=== PATIENT | female | born 1935 | race Caucasian/White ===

== ENCOUNTER 2017-04-11 14:39 | Inpatient (IN) ==
[2017-04-11 17:13] LABS: Basophils % 0.3 % (0.0-0.8); Eosinophils % 0.4 % (0.00-10.9); Hematocrit 27.8 VOL% (35.7-47.0); Hemoglobin 8.6 GM/DL (12.0-16.0); Immature Granulocytes % 1.1 %; Immature Granulocytes Absolute 0.08 #; Lymphocytes # 2.2 10*3/uL (1.4-4.0); Lymphocytes % 30.1 % (21.3-54.2); Mean Corpuscular HGB Conc 30.9 GM/DL (32-36); Mean Corpuscular Hemoglobin 30 PG (27-34); Mean Corpuscular Volume 95.5 FL (87-102); Mean Platelet Volume 11.1 FL (9.6-12.0); Monocytes # 0.7 10*3/uL (0.11-0.8); Monocytes % 10.3 % (1.7-12.7); Neutrophils # 4.1 10*3/uL (1.4-7.4); Neutrophils % 57.8 % (38.7-73.9); Platelet Count 308 T/CUMM (130-400); Red Blood Count 2.91 MC/CUMM (3.8-5.5); Red Cell Distribution Width 15.7 % (9.3-17.3); White Blood Count 7.2 T/CUMM (4-12)
[2017-04-11 17:22] LABS: INR 1.1; PT Patient Result 11.1 SECS
[2017-04-11 18:22] LABS: Albumin 3.6 G/DL (3.4-5.0); Bilirubin,Total 0.5 MG/DL (0.2-1.0); Calcium 9.1 MG/DL (8.5-10.1); Osmolality,Calculated 287.1 MOS/KG (273-304); Potassium 4.7 MMOL/L (3.5-5.1); Total Protein 6.5 G/DL (6.4-8.3)
[2017-04-11] MEDS ORDERED: PANTOPRAZOLE INJ 80 MG in SODIUM CHLORIDE 0.9% 100 ML IV STA (19:44)
[2017-04-11] MEDS ORDERED: SODIUM CHLORIDE 0.9% 1,000 ML IV PRN (20:27)
[2017-04-11] MEDS ORDERED: ACETAMINOPHEN 325 MG TABLET PO PRN (20:27)
[2017-04-11] MEDS ORDERED: ONDANSETRON 4 MG/2 ML VIAL IV PRN (20:27)
[2017-04-11] MEDS ORDERED: PANTOPRAZOLE 40 MG VIAL IV ONE ×2 (20:35→20:38)
[2017-04-11] MEDS: PANTOPRAZOLE INJ 200 MG in SODIUM CHLORIDE 0.9% 250 ML IV SCH (21:13)
[2017-04-12 00:04] LABS: Hematocrit 24.4 VOL% (35.7-47.0); Hemoglobin 7.7 GM/DL (12.0-16.0)
[2017-04-12 06:47] LABS: Hematocrit 27.1 VOL% (35.7-47.0); Hemoglobin 8.6 GM/DL (12.0-16.0)
[2017-04-12 07:38] LABS: Calcium 9.2 MG/DL (8.5-10.1); Osmolality,Calculated 281.3 MOS/KG (273-304); Potassium 4.9 MMOL/L (3.5-5.1)
[2017-04-12 10:06] LABS: Hematocrit 28.6 VOL% (35.7-47.0); Hemoglobin 8.9 GM/DL (12.0-16.0)
[2017-04-12] MEDS ORDERED: ONDANSETRON ODT 4 MG TABLET PO PRN (15:42)
[2017-04-12 18:10] LABS: Hematocrit 35.4 VOL% (35.7-47.0); Hemoglobin 11.7 GM/DL (12.0-16.0)
[2017-04-12] MEDS: SERTRALINE 25 MG TABLET PO SCH (20:40)
[2017-04-12] MEDS: FENOFIBRATE 145 MG TABLET PO SCH (20:40)
[2017-04-12] MEDS: LISINOPRIL 20 MG TABLET PO SCH (20:40)
[2017-04-12] MEDS: EZETIMIBE 10 MG TABLET PO SCH (20:40)
[2017-04-12] MEDS: amLODIPine 2.5 MG TABLET PO SCH (20:41)
[2017-04-12] MEDS: PRAVASTATIN 40 MG TABLET PO SCH (20:41)
[2017-04-12] MEDS ORDERED: CARVEDILOL CR 40 MG CAPSULE PO SCH (21:00)
[2017-04-12] MEDS: PANTOPRAZOLE INJ 200 MG in SODIUM CHLORIDE 0.9% 250 ML IV SCH (22:47)
[2017-04-12] MEDS: ESTROGENS (CONJ) 0.3 MG TABLET PO SCH (22:47)
[2017-04-13 05:33] LABS: Hematocrit 31.8 VOL% (35.7-47.0); Hemoglobin 10.5 GM/DL (12.0-16.0)
[2017-04-13 06:07] LABS: Risk Ratio 3.94; VLDL CHOLESTEROL 46.2 MG/DL
[2017-04-13] MEDS: hydroCHLOROthiazide 12.5 MG CAPSULE PO SCH (08:32)
[2017-04-13] MEDS: LISINOPRIL 20 MG TABLET PO SCH ×2 (08:32→20:54)
[2017-04-13] MEDS: amLODIPine 2.5 MG TABLET PO SCH ×2 (08:32→20:54)
[2017-04-13] MEDS: PANTOPRAZOLE 40 MG TABLET PO SCH ×2 (08:33→10:10)
[2017-04-13] MEDS: SERTRALINE 25 MG TABLET PO SCH (20:53)
[2017-04-13] MEDS: ESTROGENS (CONJ) 0.3 MG TABLET PO SCH (20:54)
[2017-04-13] MEDS: FENOFIBRATE 145 MG TABLET PO SCH (20:54)
[2017-04-13] MEDS: EZETIMIBE 10 MG TABLET PO SCH (20:54)
[2017-04-13] MEDS: PRAVASTATIN 40 MG TABLET PO SCH (20:54)
[2017-04-13] MEDS ORDERED: CARVEDILOL PHOSPHATE 80 MG PO SCH (21:00)
[2017-04-14 05:28] LABS: Hematocrit 33.2 VOL% (35.7-47.0); Hemoglobin 11.1 GM/DL (12.0-16.0)
[2017-04-14] MEDS: amLODIPine 2.5 MG TABLET PO SCH (09:57)
[2017-04-14] MEDS: PANTOPRAZOLE 40 MG TABLET PO SCH (09:57)
[2017-04-14] MEDS: hydroCHLOROthiazide 12.5 MG CAPSULE PO SCH (09:57)
[2017-04-14] MEDS: LISINOPRIL 20 MG TABLET PO SCH (09:57)
[2017-04-14 11:56] VITALS: BP 160/71
== END 2017-04-14 15:34 | disposition home or self-care (01) | DRG 378 ==
LOC: N.ED 14:39 → N.EDINP 20:27 → N.5E 20:59
PROVIDERS: ADMIT Internal Medicine; ATTEND Internal Medicine

== ENCOUNTER 2018-03-09 02:53 | Inpatient (IN) ==
[2018-03-09] MEDS ORDERED: SODIUM CHLORIDE 0.9% 500 ML IV STA (03:03)
[2018-03-09] MEDS ORDERED: DILTIAZEM 50 MG/10 ML VIAL IV STA ×2 (03:03→03:58)
[2018-03-09] MEDS ORDERED: ASPIRIN 325 MG TABLET PO STA (03:03)
[2018-03-09] MEDS ORDERED: DILTIAZEM 25 MG/5 ML VIAL IV ONE (03:09)
[2018-03-09 04:01] LABS: Basophils % 0.7 % (0.0-0.8); Eosinophils # 0.1 10*3/uL (0.0-0.87); Eosinophils % 1.1 % (0.00-10.9); Hematocrit 38.1 VOL% (35.7-47.0); Hemoglobin 12.4 GM/DL (12.0-16.0); Immature Granulocytes % 0.7 %; Immature Granulocytes Absolute 0.04 #; Lymphocytes % 36.5 % (21.3-54.2); Mean Corpuscular HGB Conc 32.5 GM/DL (32-36); Mean Corpuscular Hemoglobin 31 PG (27-34); Mean Platelet Volume 10.9 FL (9.6-12.0); Monocytes % 17.7 % (1.7-12.7); Neutrophils # 2.3 10*3/uL (1.4-7.4); Neutrophils % 43.3 % (38.7-73.9); Platelet Count 260 T/CUMM (130-400); Red Blood Count 3.97 MC/CUMM (3.8-5.5); Red Cell Distribution Width 13.6 % (9.3-17.3); White Blood Count 5.4 T/CUMM (4-12)
[2018-03-09 04:16] LABS: Alanine Aminotransferase 20 U/L (13-56); Albumin 3.5 G/DL (3.4-5.0); Alkaline Phosphatase 66 U/L (45-117); Aspartate Amino Transferase 23 U/L (0-37); Bilirubin,Total < 0.39 MG/DL (0.2-1.0); Blood Urea Nitrogen 25 MG/DL (7-18); Calcium 8.7 MG/DL (8.5-10.1); Glucose 196 MG/DL (74-106); Osmolality,Calculated 281.8 MOS/KG (273-304); Potassium 3.3 MMOL/L (3.5-5.1); Sodium 137 MMOL/L (136-145); Total Protein 7.2 G/DL (6.4-8.3)
[2018-03-09] MEDS ORDERED: ENOXAPARIN 80 MG/0.8 ML SYRINGE SUBCUT STA (04:27)
[2018-03-09] MEDS ORDERED: METOPROLOL TARTRATE 5 MG/5 ML VIAL IV STA (05:07)
[2018-03-09] MEDS ORDERED: MORPHINE 4 MG/1 ML VIAL IV PRN (05:35)
[2018-03-09] MEDS ORDERED: ACETAMINOPHEN 325 MG TABLET PO PRN (05:35)
[2018-03-09] MEDS ORDERED: diphenhydrAMINE CAP 25 MG CAPSULE PO PRN (05:35)
[2018-03-09] MEDS ORDERED: MAGNESIUM SULF RIDER 2 GM in PREMIX 1 EACH IV PRN (05:35)
[2018-03-09] MEDS ORDERED: MAGNESIUM SULF RIDER 4 GM in PREMIX 1 EACH IV PRN (05:35)
[2018-03-09] MEDS ORDERED: POTASSIUM CHLORIDE 20 MEQ TABLET PO PRN (05:35)
[2018-03-09] MEDS ORDERED: BISACODYL 5 MG TABLET PO PRN (05:35)
[2018-03-09] MEDS ORDERED: ONDANSETRON 4 MG/2 ML VIAL IV PRN (05:35)
[2018-03-09] MEDS ORDERED: ZALEPLON 5 MG CAPSULE PO PRN (05:35)
[2018-03-09] MEDS ORDERED: NICOTINE 21 MG/24 HR PATCH TRANSDERM PRN (05:35)
[2018-03-09] MEDS ORDERED: dilTIAZem Drip 125 MG/125 ML PREMIX IV SCH (06:00)
[2018-03-09] MEDS ORDERED: hydrALAZINE 25 MG TABLET PO PRN (06:00)
[2018-03-09 06:06] LABS: Risk Ratio 4.9; VLDL CHOLESTEROL 88.2 MG/DL
[2018-03-09] MEDS ORDERED: AMIODARONE INJ 150 MG in DEXTROSE 5% 100 ML IV ONE (07:17)
[2018-03-09] MEDS ORDERED: AMIODARONE INJ 450 MG in DEXTROSE 5% 241 ML IV SCH (07:30)
[2018-03-09] MEDS ORDERED: ENOXAPARIN 40 MG/0.4 ML SYRINGE SUBCUT SCH (09:00)
[2018-03-09] MEDS ORDERED: CLOPIDOGREL 75 MG TABLET PO SCH ×2 (09:00→21:00)
[2018-03-09] MEDS ORDERED: FENOFIBRATE 145 MG TABLET PO SCH ×2 (09:00→21:00)
[2018-03-09] MEDS ORDERED: NON-FORMULARY MEDICATION (Omeprazole [Prilosec] 20 MG) PO SCH (09:00)
[2018-03-09] MEDS: SERTRALINE 50 MG TABLET PO SCH (10:28)
[2018-03-09] MEDS: PANTOPRAZOLE 40 MG TABLET PO SCH (10:29)
[2018-03-09] MEDS: AMIODARONE 200 MG TABLET PO SCH ×2 (10:29→21:20)
[2018-03-09] MEDS: CARVEDILOL 25 MG TABLET PO SCH ×2 (10:29→21:20)
[2018-03-09] MEDS: amLODIPine 5 MG TABLET PO SCH ×2 (10:29→21:20)
[2018-03-09] MEDS ORDERED: EZETIMIBE 10 MG TABLET PO SCH (21:00)
[2018-03-09] MEDS ORDERED: ASPIRIN EC 81 MG TABLET PO SCH (21:00)
[2018-03-09] MEDS ORDERED: SIMVASTATIN 40 MG TABLET PO SCH (21:00)
[2018-03-09] MEDS ORDERED: CARVEDILOL PHOSPHATE 80 MG PO SCH (21:00)
[2018-03-10 04:41] LABS: Basophils % 0.5 % (0.0-0.8); Eosinophils # 0.1 10*3/uL (0.0-0.87); Eosinophils % 1.1 % (0.00-10.9); Hematocrit 36.5 VOL% (35.7-47.0); Hemoglobin 11.5 GM/DL (12.0-16.0); Immature Granulocytes % 0.5 %; Immature Granulocytes Absolute 0.03 #; Lymphocytes # 2.1 10*3/uL (1.4-4.0); Lymphocytes % 37.9 % (21.3-54.2); Mean Corpuscular HGB Conc 31.5 GM/DL (32-36); Mean Corpuscular Hemoglobin 31 PG (27-34); Mean Corpuscular Volume 97.9 FL (87-102); Mean Platelet Volume 11.2 FL (9.6-12.0); Monocytes # 0.6 10*3/uL (0.11-0.8); Monocytes % 11.5 % (1.7-12.7); Neutrophils # 2.7 10*3/uL (1.4-7.4); Neutrophils % 48.5 % (38.7-73.9); Platelet Count 233 T/CUMM (130-400); Red Blood Count 3.73 MC/CUMM (3.8-5.5); Red Cell Distribution Width 13.7 % (9.3-17.3); White Blood Count 5.5 T/CUMM (4-12)
[2018-03-10 04:53] LABS: Alanine Aminotransferase 17 U/L (13-56); Albumin 3.2 G/DL (3.4-5.0); Alkaline Phosphatase 34 U/L (45-117); Aspartate Amino Transferase 18 U/L (0-37); Bilirubin,Total < 0.39 MG/DL (0.2-1.0); Blood Urea Nitrogen 26 MG/DL (7-18); Calcium 8.2 MG/DL (8.5-10.1); Glucose 120 MG/DL (74-106); Osmolality,Calculated 280.7 MOS/KG (273-304); Potassium 4.1 MMOL/L (3.5-5.1); Sodium 138 MMOL/L (136-145); Total Protein 6.4 G/DL (6.4-8.3)
[2018-03-10 08:20] VITALS: BP 167/86
[2018-03-10] MEDS ORDERED: ENOXAPARIN 40 MG/0.4 ML SYRINGE SUBCUT SCH (09:00)
[2018-03-10] MEDS ORDERED: AMIODARONE 200 MG TABLET PO SCH (09:00)
[2018-03-10] MEDS: CARVEDILOL 25 MG TABLET PO SCH (09:03)
[2018-03-10] MEDS: SERTRALINE 50 MG TABLET PO SCH (09:03)
[2018-03-10] MEDS: amLODIPine 5 MG TABLET PO SCH (09:03)
[2018-03-10] MEDS: PANTOPRAZOLE 40 MG TABLET PO SCH (09:03)
== END 2018-03-10 12:25 | disposition home or self-care (01) | DRG 309 ==
LOC: EDUNIT# → N.ED 02:53 → N.EDINP 05:35 → SUATTDRO 05:35 → N.EDINP 09:30 → N.2W 09:33 → N.TELES 13:10
PROVIDERS: ADMIT Internal Medicine; ATTEND Internal Medicine Cardiovascular Disease

== ENCOUNTER 2020-07-21 10:09 | Inpatient (IN) ==
[2020-07-21 10:50] LABS: Albumin 3.1 G/DL (3.4-5.0); Bilirubin,Total 0.4 MG/DL (0.2-1.0); Calcium 8.9 MG/DL (8.5-10.1); Osmolality,Calculated 280.5 MOS/KG (273-304); Potassium 4.1 MMOL/L (3.5-5.1); Total Protein 6.9 G/DL (6.4-8.2)
[2020-07-21 10:53] LABS: Basophils # 0.1 10*3/uL (0.0-0.2); Basophils % 0.4 % (0.0-0.8); Eosinophils % 0.3 % (0.00-10.9); Hematocrit 24.7 VOL% (35.7-47.0); Hemoglobin 6.9 GM/DL (12.0-16.0); Immature Granulocytes % 8.2 %; Immature Granulocytes Absolute 0.94 #; Lymphocytes # 1.9 10*3/uL (1.4-4.0); Lymphocytes % 16.7 % (21.3-54.2); Mean Corpuscular HGB Conc 27.9 GM/DL (32-36); Mean Corpuscular Volume 71.6 FL (87-102); Monocytes % 8.1 % (1.7-12.7); NRBC # 0.13 10*3/uL; Neutrophils % 66.3 % (38.7-73.9); Platelet Count 270 T/CUMM (130-400); Red Blood Count 3.45 MC/CUMM (3.8-5.5); White Blood Count 11.5 T/CUMM (4-12)
[2020-07-21 11:30] LABS: Atypical Lymphocytes Few; Band Neutrophils 2 % (0-10); Hypochromasia 1+; Lymphocytes 25 % (20-55); Microcytosis 1+; Nucleated Red Blood Cells 1 (0-5); Polychromasia Few; Segmented Neutrophils 67 % (50-85); Total Cells Counted 100
[2020-07-21 11:31] LABS: Platelet Estimate Normal
[2020-07-21] MEDS ORDERED: DEXTROSE 50% 25 GM/50 ML VIAL IV PRN (13:26)
[2020-07-21] MEDS ORDERED: GLUCAGON 1 MG VIAL IM PRN (13:26)
[2020-07-21] MEDS ORDERED: MORPHINE 4 MG/1 ML VIAL IV PRN (13:26)
[2020-07-21] MEDS ORDERED: ONDANSETRON 4 MG/2 ML VIAL IV PRN (13:26)
[2020-07-21] MEDS ORDERED: SODIUM CHLORIDE 0.9% 1,000 ML IV PRN (13:33)
[2020-07-21] MEDS ORDERED: FUROSEMIDE 40 MG/4 ML VIAL IV ONE ×2 (13:35→21:30)
[2020-07-21] MEDS: hydrALAZINE 20 MG/1 ML VIAL IV PRN ×2 (14:53→20:07)
[2020-07-21] MEDS: PANTOPRAZOLE 40 MG VIAL IV SCH ×2 (15:54→21:20)
[2020-07-21] MEDS: MEROPENEM 500 MG in SODIUM CHLORIDE 0.9% 100 ML IV SCH (17:41)
[2020-07-21] MEDS: lisinopriL 20 MG TABLET PO SCH (21:10)
[2020-07-21] MEDS: FERROUS SULFATE 325 MG TABLET PO SCH (21:10)
[2020-07-21] MEDS: amLODIPine 5 MG TABLET PO SCH (21:10)
[2020-07-21] MEDS: EZETIMIBE 10 MG TABLET PO SCH (21:10)
[2020-07-21] MEDS: PRAVASTATIN 80 MG TABLET PO SCH (21:45)
[2020-07-22] MEDS: MEROPENEM 500 MG in SODIUM CHLORIDE 0.9% 100 ML IV SCH ×4 (05:00→23:30)
[2020-07-22 05:19] LABS: Calcium 9.2 MG/DL (8.5-10.1); Osmolality,Calculated 277.5 MOS/KG (273-304); Potassium 3.8 MMOL/L (3.5-5.1); Risk Ratio 4.58; VLDL CHOLESTEROL 38.2 MG/DL
[2020-07-22] MEDS: LEVOTHYROXINE 50 MCG TABLET PO SCH (06:04)
[2020-07-22 08:33] LABS: Basophils # 0.1 10*3/uL (0.0-0.2); Basophils % 1.1 % (0.0-0.8); Eosinophils # 0.1 10*3/uL (0.0-0.87); Eosinophils % 1.1 % (0.00-10.9); Hematocrit 32.2 VOL% (35.7-47.0); Immature Granulocytes % 7.5 %; Lymphocytes # 1.5 10*3/uL (1.4-4.0); Lymphocytes % 15.7 % (21.3-54.2); Mean Corpuscular HGB Conc 29.5 GM/DL (32-36); Mean Corpuscular Volume 74.4 FL (87-102); Mean Platelet Volume 10.9 FL (9.6-12.0); Monocytes % 8.8 % (1.7-12.7); NRBC # 0.09 10*3/uL; Neutrophils % 65.8 % (38.7-73.9); Platelet Count 213 T/CUMM (130-400); White Blood Count 9.4 T/CUMM (4-12)
[2020-07-22 08:35] LABS: Hemoglobin 9.5 GM/DL (12.0-16.0); Red Blood Count 4.33 MC/CUMM (3.8-5.5)
[2020-07-22 08:57] LABS: Band Neutrophils 2 % (0-10); Hypochromasia 1+; Lymphocytes 19 % (20-55); Microcytosis 1+; Myelocytes 1 %; Nucleated Red Blood Cells 1 (0-5); Platelet Estimate Normal; Polychromasia Slight; Segmented Neutrophils 77 % (50-85); Total Cells Counted 100
[2020-07-22] MEDS: lisinopriL 20 MG TABLET PO SCH ×2 (09:02→21:13)
[2020-07-22] MEDS: FERROUS SULFATE 325 MG TABLET PO SCH ×2 (09:02→21:15)
[2020-07-22] MEDS: hydroCHLOROthiazide 25 MG TABLET PO SCH (09:02)
[2020-07-22] MEDS: PANTOPRAZOLE 40 MG VIAL IV SCH ×2 (09:02→21:13)
[2020-07-22] MEDS: FUROSEMIDE 40 MG/4 ML VIAL IV SCH (09:02)
[2020-07-22] MEDS: amLODIPine 5 MG TABLET PO SCH ×2 (09:03→21:14)
[2020-07-22] MEDS: AMIODARONE 200 MG TABLET PO SCH (09:03)
[2020-07-22] MEDS: SERTRALINE 50 MG TABLET PO SCH (09:03)
[2020-07-22] MEDS ORDERED: NITROGLYCERIN SL 0.4 MG TABLET SL PRN (09:50)
[2020-07-22] MEDS: EZETIMIBE 10 MG TABLET PO SCH (21:14)
[2020-07-22] MEDS: FENOFIBRATE 145 MG TABLET PO SCH (21:14)
[2020-07-22] MEDS: PRAVASTATIN 80 MG TABLET PO SCH (21:15)
[2020-07-23] MEDS: MEROPENEM 500 MG in SODIUM CHLORIDE 0.9% 100 ML IV SCH ×3 (05:24→21:51)
[2020-07-23] MEDS: LEVOTHYROXINE 50 MCG TABLET PO SCH (06:34)
[2020-07-23] MEDS ORDERED: LACTATED RINGERS 1,000 ML IV SCH (07:00)
[2020-07-23] MEDS: lisinopriL 20 MG TABLET PO SCH ×2 (09:58→21:51)
[2020-07-23] MEDS ORDERED: propofoL 200 MG/20 ML VIAL IV ONE (13:11)
[2020-07-23] MEDS ORDERED: LIDOCAINE 2% 5 ML VIAL ONE (13:11)
[2020-07-23] MEDS: NORTRIPTYLINE 25 MG CAPSULE PO SCH (15:22)
[2020-07-23] MEDS: FERROUS SULFATE 325 MG TABLET PO SCH ×2 (15:22→21:51)
[2020-07-23] MEDS: SERTRALINE 50 MG TABLET PO SCH (15:22)
[2020-07-23] MEDS: amLODIPine 5 MG TABLET PO SCH ×2 (15:22→21:51)
[2020-07-23] MEDS: AMIODARONE 200 MG TABLET PO SCH (15:23)
[2020-07-23] MEDS: FUROSEMIDE 40 MG/4 ML VIAL IV SCH (15:23)
[2020-07-23] MEDS: hydroCHLOROthiazide 25 MG TABLET PO SCH (15:23)
[2020-07-23] MEDS: PANTOPRAZOLE 40 MG VIAL IV SCH ×2 (15:24→21:51)
[2020-07-23] MEDS: ESTROGENS (CONJ) 0.3 MG TABLET PO SCH (15:24)
[2020-07-23] MEDS: FENOFIBRATE 145 MG TABLET PO SCH (21:51)
[2020-07-23] MEDS: EZETIMIBE 10 MG TABLET PO SCH (21:51)
[2020-07-23] MEDS: PRAVASTATIN 80 MG TABLET PO SCH (21:51)
[2020-07-23] MEDS ORDERED: diphenhydrAMINE CAP 25 MG CAPSULE ONE (22:51)
[2020-07-24] MEDS: MEROPENEM 500 MG in SODIUM CHLORIDE 0.9% 100 ML IV SCH ×3 (03:30→15:35)
[2020-07-24 05:50] LABS: Calcium 9.1 MG/DL (8.5-10.1); Osmolality,Calculated 274.8 MOS/KG (273-304); Potassium 3.2 MMOL/L (3.5-5.1)
[2020-07-24 06:00] LABS: Basophils # 0.1 10*3/uL (0.0-0.2); Basophils % 0.7 % (0.0-0.8); Eosinophils % 0.3 % (0.00-10.9); Hematocrit 33.4 VOL% (35.7-47.0); Immature Granulocytes Absolute 0.46 #; Lymphocytes # 2.5 10*3/uL (1.4-4.0); Lymphocytes % 27.4 % (21.3-54.2); Mean Corpuscular HGB Conc 29.9 GM/DL (32-36); Mean Corpuscular Volume 72.6 FL (87-102); Monocytes % 10.6 % (1.7-12.7); NRBC # 0.02 10*3/uL; Platelet Count 220 T/CUMM (130-400); Red Cell Distribution Width 20.7 % (9.3-17.3); White Blood Count 9.1 T/CUMM (4-12)
[2020-07-24] MEDS: LEVOTHYROXINE 50 MCG TABLET PO SCH (06:23)
[2020-07-24] MEDS: POTASSIUM CHLORIDE 20 MEQ TABLET PO PRN ×3 (06:54→15:34)
[2020-07-24] MEDS: hydroCHLOROthiazide 25 MG TABLET PO SCH (08:38)
[2020-07-24] MEDS: AMIODARONE 200 MG TABLET PO SCH (08:38)
[2020-07-24] MEDS: lisinopriL 20 MG TABLET PO SCH (08:38)
[2020-07-24] MEDS: FERROUS SULFATE 325 MG TABLET PO SCH (08:38)
[2020-07-24] MEDS: SERTRALINE 50 MG TABLET PO SCH (08:38)
[2020-07-24] MEDS: NORTRIPTYLINE 25 MG CAPSULE PO SCH (08:38)
[2020-07-24] MEDS: amLODIPine 5 MG TABLET PO SCH (08:38)
[2020-07-24] MEDS: PANTOPRAZOLE 40 MG VIAL IV SCH (08:41)
[2020-07-24] MEDS: FUROSEMIDE 40 MG/4 ML VIAL IV SCH (08:45)
[2020-07-24] MEDS ORDERED: ASPIRIN EC 81 MG TABLET PO SCH (09:00)
[2020-07-24] MEDS: ESTROGENS (CONJ) 0.3 MG TABLET PO SCH (10:29)
[2020-07-24 16:40] VITALS: BP 161/47
[2020-07-24] MEDS ORDERED: DOCUSATE SODIUM 100 MG CAPSULE PO SCH (21:00)
[2020-07-24] MEDS ORDERED: POLYETHYLENE GLYCOL POWDER 17 GM PACK PO SCH (21:00)
[2020-07-24] MEDS ORDERED: DOXAZOSIN 1 MG TABLET PO SCH (21:00)
[2020-07-29] MEDS ORDERED: cloNIDine 0.3 MG/24 HR PATCH TRANSDERM SCH (09:00)
== END 2020-07-24 17:35 | disposition home or self-care (01) | DRG 813 ==
LOC: EDBD → EDUNIT# → N.ED 10:09 → N.EDINP 13:48 → N.4E 14:20
PROVIDERS: ADMIT Hospitalist; ATTEND Hospitalist

== ENCOUNTER 2021-01-17 15:30 | Inpatient (IN) ==
[2021-01-17] MEDS ORDERED: SODIUM CHLORIDE 0.9% 1,000 ML IV PRN (16:29)
[2021-01-17 16:42] LABS: Basophils % 0.4 % (0.0-0.8); Eosinophils # 0.1 10*3/uL (0.0-0.87); Eosinophils % 1.3 % (0.00-10.9); Immature Granulocytes % 1.8 %; Immature Granulocytes Absolute 0.08 #; Lymphocytes # 1.4 10*3/uL (1.4-4.0); Lymphocytes % 31.7 % (21.3-54.2); Mean Corpuscular HGB Conc 27.6 GM/DL (32-36); Mean Corpuscular Volume 73.7 FL (87-102); Monocytes % 10.8 % (1.7-12.7); Platelet Count 177 T/CUMM (130-400); Red Blood Count 2.85 MC/CUMM (3.8-5.5); Red Cell Distribution Width 20.6 % (9.3-17.3); White Blood Count 4.5 T/CUMM (4-12)
[2021-01-17 16:48] LABS: Albumin 3.4 G/DL (3.4-5.0); Bilirubin,Total 0.5 MG/DL (0.20-1.00); Calcium 9.2 MG/DL (8.5-10.1); Total Protein 7.2 G/DL (6.4-8.2)
[2021-01-17 16:51] LABS: Hemoglobin 5.8 GM/DL (12.0-16.0)
[2021-01-17] MEDS ORDERED: GLUCAGON 1 MG VIAL IM PRN (17:44)
[2021-01-17] MEDS ORDERED: DEXTROSE 50% 25 GM/50 ML SYRINGE IV PRN (17:44)
[2021-01-17] MEDS ORDERED: ONDANSETRON 4 MG/2 ML VIAL IV PRN (17:44)
[2021-01-17] MEDS ORDERED: PRAVASTATIN 40 MG TABLET PO SCH (21:00)
[2021-01-17] MEDS: LOSARTAN 50 MG TABLET PO SCH (22:20)
[2021-01-17] MEDS: EZETIMIBE 10 MG TABLET PO SCH (22:20)
[2021-01-17] MEDS: FENOFIBRATE 145 MG TABLET PO SCH (22:20)
[2021-01-17] MEDS: PANTOPRAZOLE 40 MG VIAL IV SCH (22:20)
[2021-01-17] MEDS: AMIODARONE 200 MG TABLET PO SCH (22:20)
[2021-01-17] MEDS: NORTRIPTYLINE 25 MG CAPSULE PO SCH (22:45)
[2021-01-17] MEDS: PRAVASTATIN 40MG TAB PO SCH (23:49)
[2021-01-18] MEDS ORDERED: INFLUENZA VIRUS VACCINE 0.5 ML SYRINGE IM ONE (00:37)
[2021-01-18] MEDS: LEVOTHYROXINE 50 MCG TABLET PO SCH (05:52)
[2021-01-18 07:17] LABS: Basophils % 0.7 % (0.0-0.8); Eosinophils % 0.7 % (0.00-10.9); Hemoglobin 8.1 GM/DL (12.0-16.0); Immature Granulocytes % 1.3 %; Immature Granulocytes Absolute 0.06 #; Lymphocytes # 1.5 10*3/uL (1.4-4.0); Mean Corpuscular HGB Conc 28.9 GM/DL (32-36); Mean Corpuscular Volume 77.1 FL (87-102); Mean Platelet Volume 10.5 FL (9.6-12.0); Monocytes % 10.1 % (1.7-12.7); Neutrophils % 54.2 % (38.7-73.9); Platelet Count 137 T/CUMM (130-400); Red Blood Count 3.63 MC/CUMM (3.8-5.5); Red Cell Distribution Width 21.3 % (9.3-17.3); White Blood Count 4.5 T/CUMM (4-12)
[2021-01-18 07:45] LABS: Calcium 9.2 MG/DL (8.5-10.1); Osmolality,Calculated 278.8 MOS/KG (273-304); Potassium 3.7 MMOL/L (3.5-5.1); Thyroid Stimulating Hormone 5.51 uIU/ml (0.358-3.74)
[2021-01-18 07:50] LABS: Anisocytosis 2+; Platelet Estimate Adequate; Polychromasia Slight; Target Cells Few
[2021-01-18] MEDS: hydrALAZINE 20 MG/1 ML VIAL IV PRN (11:25)
[2021-01-18] MEDS: PANTOPRAZOLE 40 MG VIAL IV SCH ×2 (11:25→21:39)
[2021-01-18] MEDS ORDERED: cloNIDine 0.3 MG/24 HR PATCH TRANSDERM SCH (14:30)
[2021-01-18] MEDS: LOSARTAN 50 MG TABLET PO SCH (21:38)
[2021-01-18] MEDS: FENOFIBRATE 145 MG TABLET PO SCH (21:38)
[2021-01-18] MEDS: NORTRIPTYLINE 25 MG CAPSULE PO SCH (21:38)
[2021-01-18] MEDS: EZETIMIBE 10 MG TABLET PO SCH (21:38)
[2021-01-18] MEDS: AMIODARONE 200 MG TABLET PO SCH (21:38)
[2021-01-18] MEDS: PRAVASTATIN 40MG TAB PO SCH (21:39)
[2021-01-18] MEDS ORDERED: ACETAMINOPHEN 325 MG TABLET PO ONE (22:43)
[2021-01-19 05:13] LABS: Basophils # 0.1 10*3/uL (0.0-0.2); Eosinophils # 0.1 10*3/uL (0.0-0.87); Hematocrit 28.3 VOL% (35.7-47.0); Hemoglobin 8.4 GM/DL (12.0-16.0); Immature Granulocytes % 1.8 %; Immature Granulocytes Absolute 0.09 #; Lymphocytes # 1.3 10*3/uL (1.4-4.0); Lymphocytes % 25.2 % (21.3-54.2); Mean Corpuscular HGB Conc 29.7 GM/DL (32-36); Mean Corpuscular Volume 78.6 FL (87-102); Mean Platelet Volume 10.9 FL (9.6-12.0); Monocytes % 11.6 % (1.7-12.7); Neutrophils % 59.4 % (38.7-73.9); Platelet Count 116 T/CUMM (130-400); Red Cell Distribution Width 21.2 % (9.3-17.3); White Blood Count 5.1 T/CUMM (4-12)
[2021-01-19 05:50] LABS: Anisocytosis 1+; Hypochromasia Slight
[2021-01-19] MEDS: LEVOTHYROXINE 50 MCG TABLET PO SCH (06:38)
[2021-01-19] MEDS: PANTOPRAZOLE 40 MG VIAL IV SCH ×2 (08:59→21:27)
[2021-01-19] MEDS: hydroCHLOROthiazide 25 MG TABLET PO SCH (09:04)
[2021-01-19 09:07] LABS: Calcium 9.2 MG/DL (8.5-10.1); Osmolality,Calculated 284.4 MOS/KG (273-304); Potassium 3.7 MMOL/L (3.5-5.1)
[2021-01-19] MEDS: EZETIMIBE 10 MG TABLET PO SCH (21:27)
[2021-01-19] MEDS: NORTRIPTYLINE 25 MG CAPSULE PO SCH (21:27)
[2021-01-19] MEDS: AMIODARONE 200 MG TABLET PO SCH (21:27)
[2021-01-19] MEDS: PRAZOSIN 1 MG CAPSULE PO SCH (21:27)
[2021-01-19] MEDS: FENOFIBRATE 145 MG TABLET PO SCH (21:27)
[2021-01-19] MEDS: LOSARTAN 50 MG TABLET PO SCH (21:28)
[2021-01-19] MEDS: PRAVASTATIN 40MG TAB PO SCH (21:28)
[2021-01-20 05:27] LABS: Basophils % 0.7 % (0.0-0.8); Eosinophils % 0.5 % (0.00-10.9); Hematocrit 27.4 VOL% (35.7-47.0); Immature Granulocytes % 1.5 %; Immature Granulocytes Absolute 0.06 #; Lymphocytes # 1.3 10*3/uL (1.4-4.0); Lymphocytes % 31.8 % (21.3-54.2); Mean Corpuscular HGB Conc 28.1 GM/DL (32-36); Mean Corpuscular Volume 79.2 FL (87-102); Monocytes % 10.7 % (1.7-12.7); Neutrophils % 54.8 % (38.7-73.9); Platelet Count 106 T/CUMM (130-400); Red Blood Count 3.46 MC/CUMM (3.8-5.5); Red Cell Distribution Width 21.3 % (9.3-17.3)
[2021-01-20 05:32] LABS: Hemoglobin 7.7 GM/DL (12.0-16.0)
[2021-01-20 05:43] LABS: Calcium 8.7 MG/DL (8.5-10.1); Osmolality,Calculated 282.3 MOS/KG (273-304)
[2021-01-20 05:46] LABS: Hypochromasia 1+; Microcytosis 1+; Platelet Estimate Decreased; Polychromasia Slight
[2021-01-20] MEDS ORDERED: POTASSIUM CHLORIDE RIDER 10 MEQ/100 ML PREMIX IV PRN ×2 (05:48→08:25)
[2021-01-20] MEDS: LEVOTHYROXINE 50 MCG TABLET PO SCH (06:20)
[2021-01-20] MEDS ORDERED: LACTATED RINGERS 1,000 ML IV SCH (07:00)
[2021-01-20] MEDS ORDERED: SODIUM CHLORIDE 0.9% 1,000 ML IV PRN (08:51)
[2021-01-20] MEDS ORDERED: POTASSIUM CHLORIDE 20 MEQ TABLET PO ONE (08:52)
[2021-01-20] MEDS: POTASSIUM CHLORIDE RIDER 10 MEQ/100 ML PREMIX IV PRN ×2 (08:54→11:12)
[2021-01-20] MEDS: hydroCHLOROthiazide 25 MG TABLET PO SCH (08:54)
[2021-01-20] MEDS: PRAZOSIN 1 MG CAPSULE PO SCH ×2 (08:54→20:24)
[2021-01-20] MEDS: PANTOPRAZOLE 40 MG VIAL IV SCH (08:55)
[2021-01-20] MEDS ORDERED: LIDOCAINE 2% 5 ML VIAL ONE (14:43)
[2021-01-20] MEDS ORDERED: propofoL 200 MG/20 ML VIAL IV ONE (14:43)
[2021-01-20] MEDS: hydrALAZINE 20 MG/1 ML VIAL IV PRN (16:39)
[2021-01-20] MEDS ORDERED: MAGNESIUM HYDROXIDE SUSP 30 ML UDCUP PO PRN (17:06)
[2021-01-20] MEDS: FENOFIBRATE 145 MG TABLET PO SCH (20:24)
[2021-01-20] MEDS: AMIODARONE 200 MG TABLET PO SCH (20:24)
[2021-01-20] MEDS: EZETIMIBE 10 MG TABLET PO SCH (20:24)
[2021-01-20] MEDS: LOSARTAN 50 MG TABLET PO SCH (20:25)
[2021-01-20] MEDS: NORTRIPTYLINE 25 MG CAPSULE PO SCH (20:25)
[2021-01-20] MEDS: PRAVASTATIN 40MG TAB PO SCH (20:25)
[2021-01-20 20:43] VITALS: BP 162/59
[2021-01-20] MEDS ORDERED: SIMVASTATIN 10 MG TABLET PO SCH (21:00)
== END 2021-01-20 21:25 | disposition home or self-care (01) | DRG 378 ==
LOC: N.ED 15:30 → SUATTDRO 17:44 → N.EDINP 17:44 → N.3E 20:22
PROVIDERS: ADMIT Internal Medicine; ATTEND Internal Medicine

== ENCOUNTER 2021-04-26 23:26 | Inpatient (IN) ==
[2021-04-27 00:41] LABS: Basophils % 0.2 % (0.0-0.8); Eosinophils # 0.1 10*3/uL (0.0-0.87); Eosinophils % 0.5 % (0.00-10.9); Hematocrit 31.4 VOL% (35.7-47.0); Hemoglobin 10.2 GM/DL (12.0-16.0); Immature Granulocytes % 0.8 %; Lymphocytes # 1.1 10*3/uL (1.4-4.0); Lymphocytes % 8.5 % (21.3-54.2); Mean Corpuscular HGB Conc 32.5 GM/DL (32-36); Mean Corpuscular Volume 101.3 FL (87-102); Mean Platelet Volume 12.1 FL (9.6-12.0); Monocytes % 7.4 % (1.7-12.7); Neutrophils % 82.6 % (38.7-73.9); Platelet Count 427 T/CUMM (130-400); Red Cell Distribution Width 18.5 % (9.3-17.3); White Blood Count 12.5 T/CUMM (4-12)
[2021-04-27 01:03] LABS: Albumin 2.9 G/DL (3.4-5.0); Bilirubin,Total 0.6 MG/DL (0.20-1.00); Calcium 8.6 MG/DL (8.5-10.1); Osmolality,Calculated 276.1 MOS/KG (273-304); Potassium 4.1 MMOL/L (3.5-5.1); Total Protein 6.5 G/DL (6.4-8.2)
[2021-04-27] MEDS ORDERED: AZITHROMYCIN INJ 500 MG in SODIUM CHLORIDE 0.9% 250 ML IV STA (01:43)
[2021-04-27] MEDS ORDERED: ENOXAPARIN 30 MG/0.3 ML SYRINGE SUBCUT STA (01:51)
[2021-04-27] MEDS ORDERED: ONDANSETRON 4 MG/2 ML VIAL IV ONE (01:51)
[2021-04-27] MEDS ORDERED: FUROSEMIDE 40 MG/4 ML VIAL IV STA (01:58)
[2021-04-27] MEDS ORDERED: ENOXAPARIN 60 MG/0.6 ML SYRINGE SUBCUT STA (02:00)
[2021-04-27] MEDS ORDERED: MORPHINE 4 MG/1 ML VIAL IV STA (02:00)
[2021-04-27] MEDS ORDERED: PROMETHAZINE INJ 12.5 MG in SODIUM CHLORIDE 0.9% 50 ML IV STA (02:49)
[2021-04-27] MEDS ORDERED: PROMETHAZINE 25 MG/1 ML VIAL ONE (02:52)
[2021-04-27] MEDS ORDERED: ONDANSETRON 4 MG/2 ML VIAL IV PRN (03:10)
[2021-04-27] MEDS ORDERED: ACETAMINOPHEN 325 MG TABLET PO PRN (03:10)
[2021-04-27] MEDS ORDERED: GLUCAGON 1 MG VIAL IM PRN (03:10)
[2021-04-27] MEDS ORDERED: hydrALAZINE 20 MG/1 ML VIAL IV PRN (03:10)
[2021-04-27] MEDS ORDERED: DEXTROSE 10% 250 ML BAG IV PRN (03:30)
[2021-04-27] MEDS ORDERED: MORPHINE 4 MG/1 ML VIAL IV PRN (03:31)
[2021-04-27 05:30] LABS: Risk Ratio 5.1; Thyroid Stimulating Hormone 5.59 uIU/ml (0.358-3.74); VLDL Cholesterol 30.2 MG/DL
[2021-04-27] MEDS: AZTREONAM 1,000 MG in SODIUM CHLORIDE 0.9% 100 ML IV SCH ×3 (05:55→20:21)
[2021-04-27] MEDS ORDERED: DEXTROSE 10% 250 ML BAG IV STA (06:24)
[2021-04-27] MEDS: ALBUTEROL/IPRATROPIUM 3 ML NEB RESP TX SCH ×3 (07:50→19:53)
[2021-04-27] MEDS ORDERED: PROMETHAZINE 25 MG/1 ML VIAL IV PRN (09:00)
[2021-04-27] MEDS ORDERED: FUROSEMIDE 40 MG/4 ML VIAL IV SCH (09:00)
[2021-04-27] MEDS: PANTOPRAZOLE 40 MG TABLET PO SCH (10:57)
[2021-04-27] MEDS: VANCOMYCIN INJ 750 MG in SODIUM CHLORIDE 0.9% 250 ML IV SCH (12:45)
[2021-04-27] MEDS ORDERED: PRAZOSIN 1 MG CAPSULE PO SCH (21:00)
[2021-04-28] MEDS: ALBUTEROL/IPRATROPIUM 3 ML NEB RESP TX SCH ×4 (00:04→20:43)
[2021-04-28] MEDS ORDERED: AZITHROMYCIN INJ 500 MG in SODIUM CHLORIDE 0.9% 250 ML IV SCH (03:00)
[2021-04-28] MEDS: AZTREONAM 1,000 MG in SODIUM CHLORIDE 0.9% 100 ML IV SCH (04:57)
[2021-04-28 05:24] LABS: Basophils % 0.4 % (0.0-0.8); Eosinophils % 0.5 % (0.00-10.9); Hematocrit 29.4 VOL% (35.7-47.0); Hemoglobin 9.2 GM/DL (12.0-16.0); Immature Granulocytes % 1.1 %; Immature Granulocytes Absolute 0.09 #; Lymphocytes # 1.2 10*3/uL (1.4-4.0); Lymphocytes % 15.2 % (21.3-54.2); Mean Corpuscular HGB Conc 31.3 GM/DL (32-36); Mean Corpuscular Volume 102.8 FL (87-102); Mean Platelet Volume 11.7 FL (9.6-12.0); Monocytes % 7.4 % (1.7-12.7); Neutrophils % 75.4 % (38.7-73.9); Platelet Count 403 T/CUMM (130-400); Red Blood Count 2.86 MC/CUMM (3.8-5.5); Red Cell Distribution Width 17.7 % (9.3-17.3); White Blood Count 7.8 T/CUMM (4-12)
[2021-04-28 05:49] LABS: Calcium 8.2 MG/DL (8.5-10.1); Osmolality,Calculated 276.8 MOS/KG (273-304); Potassium 3.2 MMOL/L (3.5-5.1)
[2021-04-28 08:13] LABS: INR 1.2; PT Patient Result 13.4 SECS (10.5-12.0)
[2021-04-28] MEDS ORDERED: POTASSIUM CHLORIDE 20 MEQ TABLET PO ONE (08:20)
[2021-04-28] MEDS: PANTOPRAZOLE 40 MG TABLET PO SCH (08:45)
[2021-04-28] MEDS ORDERED: PRAZOSIN 1 MG CAPSULE PO SCH (09:00)
[2021-04-28] MEDS ORDERED: FUROSEMIDE 40 MG TABLET PO SCH (09:00)
[2021-04-28] MEDS ORDERED: LEVOTHYROXINE 50 MCG TABLET PO SCH (09:00)
[2021-04-28] MEDS ORDERED: hydroCHLOROthiazide 25 MG TABLET PO SCH (09:00)
[2021-04-28] MEDS ORDERED: SPIRONOLACTONE 50 MG TABLET PO SCH (09:00)
[2021-04-28] MEDS: VANCOMYCIN INJ 750 MG in SODIUM CHLORIDE 0.9% 250 ML IV SCH (11:24)
[2021-04-28] MEDS ORDERED: POLYETHYLENE GLYCOL POWDER 17 GM PACK PO SCH (13:00)
[2021-04-28 17:20] VITALS: BP 179/64
[2021-04-28] MEDS ORDERED: DOXYCYCLINE HYCLATE 100 MG CAPSULE PO SCH (21:00)
[2021-04-28] MEDS ORDERED: OMEPRAZOLE ODT 20 MG TABLET PO SCH (21:00)
[2021-04-28] MEDS ORDERED: LOSARTAN 50 MG TABLET PO SCH (21:00)
[2021-04-28] MEDS ORDERED: NORTRIPTYLINE 10 MG PO SCH (21:00)
[2021-04-28] MEDS ORDERED: SERTRALINE 50 MG TABLET PO SCH (21:00)
[2021-04-28] MEDS ORDERED: EZETIMIBE 10 MG TABLET PO SCH (21:00)
[2021-04-28] MEDS ORDERED: FENOFIBRATE 145 MG TABLET PO SCH (21:00)
[2021-04-28] MEDS ORDERED: SIMVASTATIN 40 MG TABLET PO SCH (21:00)
[2021-04-28] MEDS ORDERED: AMIODARONE 200 MG TABLET PO SCH (21:00)
[2021-05-03] MEDS ORDERED: cloNIDine 0.3 MG/24 HR PATCH TRANSDERM SCH (09:00)
== END 2021-04-28 19:16 | disposition home or self-care (01) | DRG 193 ==
LOC: EDUNIT# → EDBD → N.ED 23:26 → SUATTDRO 04-27 04:45 → N.EDINP 04-27 04:45 → N.TELEN 04-27 08:03
PROVIDERS: ADMIT Internal Medicine; ATTEND Internal Medicine

== ENCOUNTER 2021-07-07 13:14 | Inpatient (IN) ==
[2021-07-07] MEDS ORDERED: ONDANSETRON 4 MG/2 ML VIAL IV PRN (15:53)
[2021-07-07] MEDS ORDERED: GLUCAGON 1 MG VIAL IM PRN (15:53)
[2021-07-07] MEDS ORDERED: ACETAMINOPHEN 325 MG TABLET PO PRN (15:53)
[2021-07-07] MEDS ORDERED: SODIUM CHLORIDE 0.9% 1,000 ML IV PRN (15:58)
[2021-07-07] MEDS ORDERED: DEXTROSE 10% 250 ML BAG IV PRN (15:59)
[2021-07-07 16:36] LABS: Basophils % 0.4 % (0.0-0.8); Eosinophils # 0.1 10*3/uL (0.0-0.87); Eosinophils % 1.1 % (0.00-10.9); Hematocrit 22.3 VOL% (35.7-47.0); Hemoglobin 6.8 GM/DL (12.0-16.0); Immature Granulocytes Absolute 0.21 #; Lymphocytes # 1.9 10*3/uL (1.4-4.0); Lymphocytes % 26.7 % (21.3-54.2); Mean Corpuscular HGB Conc 30.5 GM/DL (32-36); Mean Corpuscular Volume 107.2 FL (87-102); Mean Platelet Volume 11.9 FL (9.6-12.0); Monocytes # 0.6 10*3/uL (0.11-0.8); Monocytes % 8.8 % (1.7-12.7); NRBC # 0.02 10*3/uL; Platelet Count 603 T/CUMM (130-400); Red Blood Count 2.08 MC/CUMM (3.8-5.5); Red Cell Distribution Width 16.8 % (9.3-17.3)
[2021-07-07 17:04] LABS: Albumin 3.4 G/DL (3.4-5.0); Bilirubin,Total 0.4 MG/DL (0.20-1.00); Calcium 9.6 MG/DL (8.5-10.1); Total Protein 6.8 G/DL (6.4-8.2)
[2021-07-07] MEDS: INSULIN LISPRO 100 UNIT/ML SUBCUT SCH ×2 (17:08→22:33)
[2021-07-07 17:12] LABS: Folate 12.46 NG/ML (5.38-24.0)
[2021-07-07 17:14] LABS: % Iron Saturation 25.3 % (18-50); Ferritin 256.9 ng/mL (8-252)
[2021-07-07] MEDS: hydrALAZINE 20 MG/1 ML VIAL IV PRN (20:20)
[2021-07-07] MEDS: PANTOPRAZOLE 40 MG VIAL IV SCH (22:33)
[2021-07-08] MEDS: hydrALAZINE 20 MG/1 ML VIAL IV PRN (03:53)
[2021-07-08 05:22] LABS: Basophils # 0.1 10*3/uL (0.0-0.2); Basophils % 0.7 % (0.0-0.8); Eosinophils # 0.1 10*3/uL (0.0-0.87); Eosinophils % 1.5 % (0.00-10.9); Hematocrit 28.7 VOL% (35.7-47.0); Hemoglobin 9.1 GM/DL (12.0-16.0); Immature Granulocytes % 3.8 %; Immature Granulocytes Absolute 0.26 #; Lymphocytes # 2.1 10*3/uL (1.4-4.0); Lymphocytes % 29.8 % (21.3-54.2); Mean Corpuscular HGB Conc 31.7 GM/DL (32-36); Mean Platelet Volume 11.6 FL (9.6-12.0); Monocytes # 0.7 10*3/uL (0.11-0.8); Monocytes % 9.7 % (1.7-12.7); NRBC # 0.02 10*3/uL; Neutrophils % 54.5 % (38.7-73.9); Platelet Count 496 T/CUMM (130-400); Red Cell Distribution Width 19.4 % (9.3-17.3); White Blood Count 6.9 T/CUMM (4-12)
[2021-07-08] MEDS: LEVOTHYROXINE 50 MCG TABLET PO SCH (05:45)
[2021-07-08 05:55] LABS: Calcium 9.7 MG/DL (8.5-10.1); Osmolality,Calculated 297.7 MOS/KG (273-304); Potassium 4.6 MMOL/L (3.5-5.1)
[2021-07-08] MEDS: INSULIN LISPRO 100 UNIT/ML SUBCUT SCH ×3 (07:10→17:14)
[2021-07-08] MEDS: PANTOPRAZOLE 40 MG VIAL IV SCH ×2 (08:40→20:48)
[2021-07-08 09:29] LABS: Hemoglobin 10.2 GM/DL (12.0-16.0)
[2021-07-08] MEDS: POLYETHYLENE GLYCOL POWDER 17 GM PACK PO SCH (09:52)
[2021-07-08] MEDS: SPIRONOLACTONE 50 MG TABLET PO SCH (09:52)
[2021-07-08] MEDS: FUROSEMIDE 40 MG TABLET PO SCH (09:52)
[2021-07-08] MEDS: hydroCHLOROthiazide 25 MG TABLET PO SCH (09:52)
[2021-07-08] MEDS: LOSARTAN 50 MG TABLET PO SCH (09:52)
[2021-07-08 16:36] LABS: Hematocrit 26.8 VOL% (35.7-47.0); Hemoglobin 8.5 GM/DL (12.0-16.0)
[2021-07-08] MEDS: NORTRIPTYLINE 25 MG CAPSULE PO SCH (20:47)
[2021-07-08] MEDS: SERTRALINE 50 MG TABLET PO SCH (20:47)
[2021-07-08] MEDS: SIMVASTATIN 40 MG TABLET PO SCH (20:47)
[2021-07-08] MEDS: FENOFIBRATE 145 MG TABLET PO SCH (20:48)
[2021-07-08] MEDS: AMIODARONE 200 MG TABLET PO SCH (20:48)
[2021-07-08] MEDS: EZETIMIBE 10 MG TABLET PO SCH (20:48)
[2021-07-09 02:03] LABS: Hemoglobin 8.3 GM/DL (12.0-16.0)
[2021-07-09] MEDS: hydrALAZINE 20 MG/1 ML VIAL IV PRN (03:53)
[2021-07-09 04:38] LABS: Basophils % 0.6 % (0.0-0.8); Eosinophils # 0.1 10*3/uL (0.0-0.87); Eosinophils % 1.9 % (0.00-10.9); Hematocrit 26.6 VOL% (35.7-47.0); Hemoglobin 8.4 GM/DL (12.0-16.0); Immature Granulocytes % 3.7 %; Immature Granulocytes Absolute 0.24 #; Lymphocytes # 1.8 10*3/uL (1.4-4.0); Lymphocytes % 28.1 % (21.3-54.2); Mean Corpuscular HGB Conc 31.6 GM/DL (32-36); Mean Corpuscular Volume 99.3 FL (87-102); Mean Platelet Volume 11.6 FL (9.6-12.0); Monocytes # 0.5 10*3/uL (0.11-0.8); Monocytes % 8.4 % (1.7-12.7); Neutrophils % 57.3 % (38.7-73.9); Platelet Count 445 T/CUMM (130-400); Red Blood Count 2.68 MC/CUMM (3.8-5.5); Red Cell Distribution Width 19.5 % (9.3-17.3); White Blood Count 6.4 T/CUMM (4-12)
[2021-07-09 04:56] LABS: Calcium 9.4 MG/DL (8.5-10.1); Osmolality,Calculated 295.5 MOS/KG (273-304)
[2021-07-09] MEDS: LEVOTHYROXINE 50 MCG TABLET PO SCH (06:02)
[2021-07-09 08:23] LABS: Hematocrit 28.6 VOL% (35.7-47.0)
[2021-07-09] MEDS: hydroCHLOROthiazide 25 MG TABLET PO SCH (08:49)
[2021-07-09] MEDS: PANTOPRAZOLE 40 MG VIAL IV SCH ×2 (08:50→21:21)
[2021-07-09] MEDS: LACTATED RINGERS 1,000 ML IV SCH (12:16)
[2021-07-09] MEDS ORDERED: ETOMIDATE 20 MG/10 ML VIAL IV ONE (12:58)
[2021-07-09] MEDS ORDERED: propofoL 200 MG/20 ML VIAL IV ONE (12:58)
[2021-07-09] MEDS ORDERED: LIDOCAINE 2% 5 ML VIAL ONE (12:58)
[2021-07-09] MEDS ORDERED: traMADol 50 MG TABLET PO PRN (13:30)
[2021-07-09] MEDS: POLYETHYLENE GLYCOL POWDER 17 GM PACK PO SCH (15:02)
[2021-07-09] MEDS: SPIRONOLACTONE 50 MG TABLET PO SCH (15:15)
[2021-07-09] MEDS: LOSARTAN 50 MG TABLET PO SCH (15:15)
[2021-07-09] MEDS: FUROSEMIDE 40 MG TABLET PO SCH (15:15)
[2021-07-09] MEDS: EZETIMIBE 10 MG TABLET PO SCH (21:21)
[2021-07-09] MEDS: NORTRIPTYLINE 25 MG CAPSULE PO SCH (21:21)
[2021-07-09] MEDS: FENOFIBRATE 145 MG TABLET PO SCH (21:21)
[2021-07-09] MEDS: SERTRALINE 50 MG TABLET PO SCH (21:21)
[2021-07-09] MEDS: AMIODARONE 200 MG TABLET PO SCH (21:21)
[2021-07-09] MEDS: SIMVASTATIN 40 MG TABLET PO SCH (21:21)
[2021-07-10] MEDS: FUROSEMIDE 40 MG TABLET PO SCH (08:44)
[2021-07-10] MEDS: POLYETHYLENE GLYCOL POWDER 17 GM PACK PO SCH (08:44)
[2021-07-10] MEDS: PANTOPRAZOLE 40 MG VIAL IV SCH (08:44)
[2021-07-10] MEDS: hydroCHLOROthiazide 25 MG TABLET PO SCH (08:44)
[2021-07-10] MEDS: LOSARTAN 50 MG TABLET PO SCH (08:44)
[2021-07-10] MEDS: SPIRONOLACTONE 50 MG TABLET PO SCH (08:44)
[2021-07-10] MEDS: LACTATED RINGERS 1,000 ML IV SCH (08:47)
[2021-07-10 10:04] LABS: Hematocrit 28.6 VOL% (35.7-47.0); Hemoglobin 8.9 GM/DL (12.0-16.0)
[2021-07-10 11:38] VITALS: BP 187/51
== END 2021-07-10 14:54 | disposition home or self-care (01) | DRG 378 ==
LOC: N.ADMINP → SUATTDRO 13:54 → N.3E 14:59 → SUATTDRO 15:53
PROVIDERS: ADMIT Internal Medicine; ATTEND Emergency Medicine